=== PATIENT | female | born 1965 | race Two or more races ===

== ENCOUNTER 2018-05-09 11:55 | Emergency (ER) | payer OTHER ==
[~2018-05-09] VITALS: Ht 160 cm; Wt 83.0 kg
[2018-05-09 12:10] LABS: GLUCOSE,POINT OF CARE 95 MG/DL (70-110)
[2018-05-09] MEDS ORDERED: KETOROLAC TROMETHAMINE 30 MG/ML VIAL IM ONE (13:45)
[2018-05-09 14:30] VITALS: BP 142/87
== END 2018-05-09 14:46 | disposition home or self-care (01) ==
LOC: EMS 11:57
DX: M54.5 Low back pain (principal); I10 Essential (primary) hypertension; E11.9 Type 2 diabetes mellitus without complications; Z88.0 Allergy status to penicillin
CPT/HCPCS: 82962; 96372; 99283; J1885

== ENCOUNTER 2018-06-28 12:53 | Emergency (ER) | payer OTHER ==
[~2018-06-28] VITALS: Ht 160 cm; Wt 82.0 kg
[2018-06-28 13:08] LABS: GLUCOSE,POINT OF CARE 64 MG/DL (70-110)
[2018-06-28] MEDS ORDERED: KETO10TA2 PO (13:14)
[2018-06-28] MEDS ORDERED: METF-960 PO (13:14)
[2018-06-28] MEDS ORDERED: KETOROLAC TROMETHAMINE 60 MG/2 ML VIAL IM ONE (14:45)
[2018-06-28] MEDS ORDERED: METHOCARBAMOL 500 MG TABLET PO ONE (14:45)
[2018-06-28 15:26] VITALS: BP 127/71
== END 2018-06-28 15:35 | disposition home or self-care (01) ==
LOC: EMS 12:57
DX: M51.24 Other intervertebral disc displacement, thoracic region (principal); G89.29 Other chronic pain; M47.9 Spondylosis, unspecified; E11.9 Type 2 diabetes mellitus without complications; I10 Essential (primary) hypertension; Z79.891 Long term (current) use of opiate analgesic; Z79.84 Long term (current) use of oral hypoglycemic drugs; Z88.0 Allergy status to penicillin
CPT/HCPCS: 82962; 96372; 99283; J1885